=== PATIENT | female | born 2000 | race Caucasian/White ===

== ENCOUNTER 2021-08-09 16:31 | Emergency (ER) | payer BC, SELFPAY ==
[~2021-08-09 16:31] MED LIST: Iopamidol 370 76% 100 ML VIAL ONE; Sodium Chloride 0.9% 100 ML BAG ONE
[2021-08-09] MEDS ORDERED: Ondansetron ODT 4 MG TAB ONE (17:02)
[2021-08-09 17:28] LABS: #Basophils 0.1 thou/uL (0.0-0.2); #Lymphocytes 1.8 thou/uL (1.20-3.40); #Monocytes 1.2 thou/uL (0.11-0.59); #Neutrophils 14.7 thou/uL (1.40-6.50); %Basophils 0.3 % (0.0-1.0); %Eosinophils 0.1 % (0.0-10.0); %Monocytes 6.7 % (0.0-4.0); %Neutrophils 82.8 % (31.0-61.0); Mean Corpuscular HGB CONC 33.4 g/dL (32.0-36.0); Mean Corpuscular Hemoglobin 28.9 pg (25.0-35.0); Mean Corpuscular Volume 86.6 fL (78.0-98.0); Platelet Count 266 thou/uL (130-400); RBC Distribution Width 11.6 % (11.5-14.5); Red Blood Cell (RBC) Count 5.19 mill/uL (4.00-5.20); White Blood Cell (WBC) Count 17.7 thou/uL (4.8-10.8)
[2021-08-09 17:33] LABS: BHCG - Serum Negative (NEGATIVE); Pregs Control Background? CLEAR/WHITE (CLR/WHITE); Pregs Control Bar Appear? YES (CONTROL BAR)
[2021-08-09 17:44] LABS: ALT (SGPT) 20 U/L (8-55); AST (SGOT) 18 U/L (5-30); Albumin 4.5 g/dL (3.5-5.0); Alkaline Phosphatase 91 U/L (40-100); Anion Gap 18 mmol/L (10-20); BUN (Urea Nitrogen) 8 mg/dL (8.4-21.0); Bilirubin, Total 0.7 mg/dL (0.2-1.2); Calc. Creatinine Clearance 0 mL/min (70-130); Calcium 9.6 mg/dL (7.8-10.44); Carbon Dioxide 22 mmol/L (22-29); Chloride 100 mmol/L (98-107); Glucose 87 mg/dL (70-105); Lipase 28 U/L (8-78); Magnesium 1.8 mg/dL (1.7-2.2); Protein, Total 8.5 g/dL (6.0-8.3); Sodium 136 mmol/L (136-145)
[2021-08-09 17:48] LABS: Bilirubin Small (Negative); Blood, Urine Moderate (Negative); Glucose, Urine (Dipstick) Negative (Negative); Ketone, Urine > or equal to 80 mg/dL (Negative); Leukocyte Negative (Negative); Nitrite Negative (Negative); Protein, Urine (Dipstick) 30 mg/dL (Neg-Trace); Urobilinogen 0.2 mg/dL (Less than 2); pH, Urine 5.5 (5.0-9.0)
[2021-08-09 17:50] LABS: Clarity Hazy (Clear); Specific Gravity, Urine 1.022 (1.002-1.036)
[2021-08-09 17:56] LABS: Bacteria/HPF Rare-Few HPF (None Seen)
[2021-08-09] MEDS ORDERED: Sodium Chloride 0.9% 1,000 ML ONE (18:10)
[2021-08-09] MEDS ORDERED: Piperacillin/Tazobactam 4.5 GM VIAL ONE (19:18)
[2021-08-09 20:16] LABS: SARS-CoV-2 NAA Rapid Test Not Detected (NotDetected)
== END 2021-08-09 20:40 | disposition short-term general hospital (02) ==
LOC: MADERS 16:31
DX: N28.89 Other specified disorders of kidney and ureter (principal); R31.9 Hematuria, unspecified
CPT/HCPCS: 36415; 74177; 80053; 81003; 81015; 83690; 83735; 84703; 85025; 96365; J2543; J3490; J7050; Q0162; Q9967; U0002

== ENCOUNTER 2023-07-17 14:39 | Emergency (ER) | payer BC, SELFPAY ==
[~2023-07-17 14:39] MED LIST changes: -Sodium Chloride 0.9% 100 ML BAG ONE
[2023-07-17] MEDS ORDERED: Lactated Ringer's 1,000 ML ONE (15:07)
[2023-07-17] MEDS ORDERED: Ketorolac Tromethamine 30 MG (1 mL) VIAL ONE (15:07)
[2023-07-17] MEDS ORDERED: Ondansetron PF 4 MG/2 ML Vial ONE (15:07)
[2023-07-17 15:24] LABS: #Basophils 0.1 thou/uL (0.0-0.2); #Eosinphils 0.2 thou/uL (0.0-0.7); #Lymphocytes 2.7 thou/uL (1.20-3.40); #Monocytes 0.4 thou/uL (0.11-0.59); #Neutrophils 11.2 thou/uL (1.40-6.50); %Basophils 0.4 % (0.0-1.0); %Eosinophils 1.3 % (0.0-10.0); %Lymphocytes 18.6 % (21.0-51.0); %Monocytes 2.9 % (0.0-10.0); %Neutrophils 76.8 % (42.0-75.0); Hematocrit 45.1 % (36.0-47.0); Hemoglobin 14.8 g/dL (12.0-16.0); Mean Corpuscular HGB CONC 32.7 g/dL (32.0-36.0); Mean Corpuscular Hemoglobin 28.7 pg (27.0-31.0); Mean Corpuscular Volume 87.8 fl (78.0-98.0); Mean Platelet Volume 9.6 fL (7.4-10.4); Platelet Count 274 10x3/uL (130-400); RBC Distribution Width 12.1 % (11.5-14.5); Red Blood Cell (RBC) Count 5.14 mill/uL (4.20-5.40); White Blood Cell (WBC) Count 14.6 10x3/uL (4.8-10.8)
[2023-07-17 15:35] LABS: BHCG - Serum Negative (NEGATIVE); Pregs Control Background? CLEAR/WHITE (CLR/WHITE); Pregs Control Bar Appear? YES (CONTROL BAR)
[2023-07-17 15:45] LABS: ALT (SGPT) 35 U/L (8-55); AST (SGOT) 25 U/L (5-34); Albumin 4.4 g/dL (3.5-5.0); Alkaline Phosphatase 82 U/L (40-110); Anion Gap 16 mmol/L (10-20); BUN (Urea Nitrogen) 9 mg/dL (7.0-18.7); Bilirubin, Total 0.3 mg/dL (0.2-1.2); Calc. Creatinine Clearance 0 mL/min (70-130); Calcium 9.2 mg/dL (7.8-10.44); Carbon Dioxide 20 mmol/L (22-29); Chloride 106 mmol/L (98-107); Estimated GFR 127; Globulin 3.2 g/dL (2.4-3.5); Glucose 91 mg/dL (70-105); Lipase 5 U/L (8-78); Potassium 3.6 mmol/L (3.5-5.1); Protein, Total 7.6 g/dL (6.0-8.3); Sodium 138 mmol/L (136-145)
[2023-07-17 16:11] LABS: Bilirubin Negative (Negative); Blood, Urine Large (Negative); Clarity Slightly Cloudy (Clear); Glucose, Urine (Dipstick) Negative (Negative); Ketone, Urine Negative (Negative); Leukocyte Negative (Negative); Nitrite Negative (Negative); Protein, Urine (Dipstick) Negative (Neg-Trace); Specific Gravity, Urine 1.015 (1.005-1.030); Urobilinogen 0.2 mg/dL (Less than 2)
[2023-07-17 16:16] LABS: Bacteria/HPF Rare-Few HPF (None Seen); CAUTI Indications for Culture Pelvic or flank pain; WBC/HPF 0-3 HPF (0-3)
[2023-07-17 16:17] LABS: Urine Culture Reflex No No
[2023-07-17] MEDS ORDERED: Piperacillin/Tazobactam 4.5 GM VIAL ONE (16:35)
[2023-07-17] MEDS ORDERED: Sodium Chloride 0.9% 100 ML ONE (16:35)
== END 2023-07-17 17:36 | disposition short-term general hospital (02) ==
LOC: MADERS 14:39
DX: K35.80 Unspecified acute appendicitis (principal)
CPT/HCPCS: 74177; 80053; 81001; 83605; 83690; 84703; 85025; 94760; 96365; 96375; J1885; J2405; J2543; J3490; J7120; Q9967